=== PATIENT | male | born 1955 | race Caucasian/White ===

== ENCOUNTER 2021-08-07 13:33 | Emergency (ER) | payer OTHER, MEDICAID ==
[~2021-08-07] VITALS: Ht 175.3 cm; Wt 95.0 kg
[2021-08-07] MEDS ORDERED: VANCOMYCIN 1G PREMIX 200 ML IV STA (14:24)
[2021-08-07] MEDS ORDERED: MORPHINE SULFATE 4 MG/ML CPJ (NOT FOR IM USE) IV STA (14:24)
[2021-08-07] MEDS ORDERED: SODIUM CHLORIDE 0.9% 1,000 ML IV ONE (14:30)
[2021-08-07] MEDS ORDERED: VANCOMYCIN 1GM PMX (XELLIA) 200 ML IV NR (14:45)
[2021-08-07 15:07] LABS: BASOPHILS % 0.5 % (0.0-2.0); HEMATOCRIT. 28.9 % (42.0-52.0); HEMOGLOBIN. 9.6 g/dL (14.0-18.0); LYMPHOCYTES % 15.2 % (20.0-50.0); MEAN CORPUSCULAR HEMOGLOBIN 28.9 pg (28.0-32.0); MEAN CORPUSCULAR VOLUME 87.3 fL (80.0-94.0); MEAN PLATELET VOLUME 6.4 fl (7.4-10.4); MONOCYTES % 11.1 % (2.0-8.0); NEUTROPHILS % 70.2 % (40.0-76.0); PLATELET 481 x1000/uL (130-400); RED BLOOD CELL COUNT 3.31 mill/uL (4.7-6.1); RED CELL DISTRIBUTION WIDTH 13.5 % (11.6-14.6)
[2021-08-07 15:17] LABS: CHLORIDE 104 mEq/L (98-107)
[2021-08-07 15:29] LABS: INR 1.1; PROTHROMBIN TIME 11.4 sec (9.6-11.0)
[2021-08-07 20:00] VITALS: BP 154/71
== END 2021-08-07 21:12 | disposition short-term general hospital (02) ==
LOC: ER 13:33 → EDBEDREQTM 17:06 → ER 21:12 → CANBEDREQ 22:40
DX: L03.115 Cellulitis of right lower limb (principal); R74.01 Elevation of levels of liver transaminase levels; D64.9 Anemia, unspecified; E11.9 Type 2 diabetes mellitus without complications; I10 Essential (primary) hypertension; Z20.822 Contact with and (suspected) exposure to COVID-19
CPT/HCPCS: 36415; 80053; 83605; 85025; 85610; 87040; 87426; 96365; 96366; 96375; 99285; J2270; J3370; J7030